=== PATIENT | male | born 1950 | race Caucasian/White ===

== ENCOUNTER → 2019-05-17 14:50 | Outpatient (CLI) | payer OTHER, SELFPAY ==
--- NOTE | 2019-05-17 14:59 | DI.RAD.S_ITS ---
PROCEDURE: XR CHEST 2V INDICATIONS: COUGH TECHNIQUE: 2 views of the chest were acquired. COMPARISON: None. FINDINGS: Surgical changes and devices: None. Lungs and pleura: Hyperinflation compatible with COPD Lungs are clear. No pleural effusions or pneumothorax. Mediastinum: Mediastinal contours are normal. Heart size is normal. Bones and chest wall: No suspicious bony abnormalities. Soft tissues appear unremarkable. Multiple displaced left superior fractures. IMPRESSION: 1. COPD. 2. No acute cardiopulmonary disease. Dictated by: Rima Fofana M.D. on 05/17/2019 at 15:24 Approved by: Rima Fofana M.D. on 05/17/2019 at 15:25
== END ==
PROVIDERS: Visit Provider Internal Medicine
DX: R05 Cough (principal); J44.9 Chronic obstructive pulmonary disease, unspecified
CPT/HCPCS: 71046

== ENCOUNTER → 2019-06-17 12:49 | Outpatient (CLI) | payer OTHER, SELFPAY ==
--- NOTE | 2019-06-22 11:01 | PM.PFT.1 ---
Pulmonary Function Test Referral & Results Date Patient Seen: 06/17/19 Requesting provider: Mich Cruz Results: The spirometry demonstrates an FVC of 5.13 L which is 106% of predicted. The FEV1 was measured at 1.92 L which is 54% of predicted. The FEV1/FVC ratio was 37 which is 50% of predicted. Following the administration of bronchodilator there was a 24% improvement in FEV1 and a 63% improvement in FEF 25-75%. Lung volumes show an SVC of 4.60 L which is 94% of predicted. The diffusing capacity was measured at 22.51 which is 64% of predicted. No hemoglobin value was provided, so no correction for potential anemia could be made, if appropriate. The maximum voluntary ventilation was reduced Interpretation: This study demonstrates moderately severe obstructive lung disease based on reduction FEV1 and FEV1/FVC ratio. There is evidence of significant benefit following bronchodilator as above Lung volumes appear to be normal so no evidence of restrictive lung disease There is a significant reduction in diffusing capacity suggesting significant disease at the capillary alveolar level as well
== END ==
PROVIDERS: PCP Internal Medicine; Visit Provider Internal Medicine
DX: R05 Cough (principal); J44.1 Chronic obstructive pulmonary disease with (acute) exacerbation; F17.200 Nicotine dependence, unspecified, uncomplicated
CPT/HCPCS: 94060; 94726; 94729

== ENCOUNTER 2019-06-19 01:20 | Emergency (ER) | payer OTHER, SELFPAY ==
--- NOTE | 2019-06-19 01:24 | ED.SOB ---
HPI - SOB/Dyspnea General Chief Complaint: Upper Respiratory Symptoms Stated Complaint: can't breath, has pneumonia Time Seen by Provider: 06/19/19 01:23 Source: patient and family Mode of arrival: Ambulatory Limitations: no limitations History of Present Illness HPI Narrative: 68M daily smoker with history of COPD presents with his and chief complaint of a few months of ongoing, if not worsening, SOB and cough. He has had no fever or chills but has felt increasingly under the weather. He denies any sputum production or hemoptysis. He denies any chest pain. He is becoming slowly and increasingly short of breath. He denies any nausea, vomiting or diarrhea. He was seen and evaluated few months ago and diagnosed with pneumonia and had been on a course of antibiotics and steroids which seemed to help but as soon as these medications were stopped his symptoms returned. Any recent travel, history of clot or cancer. He denies any lower extremity swelling or edema. Denies any recent injury, trauma, hospitalizations MD Complaint: shortness of breath and cough Onset (ago): month(s) Severity: moderate Consistency/Duration: constant Relieving factors: nothing Exacerbating factors: nothing Known history of: COPD Associated symptoms: denies other symptoms Treatment prior to arrival: none Related Data Previous Rx's Medication Instructions Recorded albuterol sulfate 1 inhalation INHALATION Q4-6H PRN 06/19/19 #1 each benzonatate [Tessalon Perles] 100 mg PO BID-TID PRN #20 cap 06/19/19 doxycycline monohydrate 100 mg PO BID 10 Days #20 cap 06/19/19 prednisone See Rx Instructions .ROUTE 06/19/19 .COMPLEX #30 tab promethazine-codeine 5 ml PO Q4-6H PRN #473 ml 06/19/19 Review of Systems Constitutional Constitutional: Denies chills, Denies fatigue, Denies fever(s), Denies frequent falls, Denies lethargy and Denies weakness Eyes Eyes: Denies change in vision, Denies eye discharge, Denies irritation and Denies loss of vision ENT Ears, Nose, Mouth, and Throat: Denies change in voice, Denies dizziness, Denies neck pain, Denies sore throat and Denies throat swelling Cardiovascular Cardiovascular: Denies chest pain, Denies irregular heart rhythm, Denies lightheadedness, Denies palpitations, Reports dyspnea, Denies dyspnea on exertion and Denies orthopnea Respiratory Respiratory: Reports cough, Reports dyspnea, Denies dyspnea on exertion and Denies wheezing Gastrointestinal Gastrointestinal: Denies abdominal pain, Denies change in bowel habits, Denies diarrhea, Denies nausea and Denies vomiting Genitourinary Genitourinary: Denies hematuria, Denies flank pain, Denies urinary incontinence and Denies urinary urgency Musculoskeletal Musculoskeletal: Denies back pain, Denies muscle weakness, Denies neck pain, Denies numbness and Denies tingling Integumentary/Breasts Skin/Breast: Denies pruritus, Denies erythema, Denies rash and Denies wounds Neurologic Neurologic: Denies behavioral changes, Denies confusion, Denies dizziness, Denies frequent falls, Denies loss of vision, Denies numbness, Denies tingling and Denies weakness Psychiatric Psychiatric: Denies anxiety, Denies behavioral changes, Denies confusion, Denies depression, Denies homicidal ideation and Denies suicidal ideation Endocrine Endocrine: Denies fatigue, Denies flushing and Denies palpitations Hematologic/Lymphatic Hematologic/Lymphatic: Denies easy bruising Allergic/Immunologic Allergic/Immunologic: Denies urticaria, Denies throat swelling and Denies wheezing Patient History Social History Smoking Status: Current every day smoker Smoking Status: Current every day smoker tobacco type: cigarettes alcohol intake frequency: 0-2 drinks per day Exam Narrative Exam Narrative: GENERAL: [] 68 year old patient appears stated age. Well-nourished, well-developed patient, in mild distress. HEAD: Atraumatic. Normocephalic. EYES: Pupils equal round and reactive. Extraocular motions intact. No scleral icterus. No injection or drainage. ENT: Nose without bleeding, purulent drainage. Throat without erythema, tonsillar hypertrophy or exudate. Airway patent. NECK: Trachea midline. Non tender CARDIOVASCULAR: Regular rate and rhythm without murmurs, gallops, or rubs. RESPIRATORY: Decreased breath sounds bilaterally with prolonged expiratory phase and end-expiratory wheeze. Deep breath seems to elicit cough. No crackles or rhonchi GASTROINTESTINAL: Abdomen soft, non-tender, nondistended. EXTREMITIES: No edema or joint tenderness. BACK: Nontender without deformity or crepitance. No flank tenderness. NEURO: AOx3. SKIN: No rash or erythema of visible areas Initial Vital Signs Initial Vital Signs: Vital Signs Pulse Rate 68 06/19/19 01:33 Respiratory Rate 20 06/19/19 01:33 Pulse Oximetry 96 06/19/19 01:33 Course Orders Ordered: ED Orders 06/19/19 01:45 B Type Natriuretic Peptide Stat Basic Metabolic Panel Stat Complete Blood Count AUTO DIFF Stat D Dimer Stat Lactate (Lactic Acid) Stat Magnesium Stat Procalcitonin Stat Troponin & CK Cardiac Panel Stat 06/19/19 01:55 Consult to Respiratory Therapy Evaluate & Treat 06/19/19 01:56 XR chest 2V Stat 06/19/19 02:15 Blood Culture Stat 06/19/19 02:43 CT angio chest PE protocol Stat Sodium Chloride (Normal Saline 0.9%) 1,000 mls @ 150 mls/hr IV CONT DEEDEE Last Admin: 06/19/19 02:09 Dose: 150 mls/hr Documented by: MINERVA Discontinued Medications Albuterol/Ipratropium (Duoneb) 3 ml INH NOW ONE Stop: 06/19/19 01:34 Last Admin: 06/19/19 01:35 Dose: 3 ml Documented by: RIDDHI Albuterol/Ipratropium (Duoneb) 3 ml INH NOW ONE Stop: 06/19/19 01:56 Last Admin: 06/19/19 02:15 Dose: 3 ml Documented by: RIDDHI Methylprednisolone (Solu-Medrol 125 Mg Vial) 125 mg IV NOW ONE Stop: 06/19/19 01:56 Last Admin: 06/19/19 02:09 Dose: 125 mg Documented by: MINERVA Vital Signs Vital signs: Vital Signs - 8 hr 06/19/19 01:33 06/19/19 01:55 06/19/19 01:59 Temperature 98.1 F Pulse Rate 68 68 68 Respiratory Rate 20 20 Blood Pressure 156/90 H Blood Pressure [Left Arm] 143/83 H Pulse Oximetry 96 98 98 MDM - SOB/Dyspnea Lab Data Result diagrams: 06/19/19 01:45 06/19/19 01:45 Labs: Lab Results 06/19/19 06/19/19 06/19/19 Range/Units 01:45 01:45 01:45 WBC 5.7 (4.5-11.0) X10^3/uL RBC 4.30 L (4.5-5.9) X10^6/uL Hgb 15.0 (13.5-17.5) g/dL Hct 42.5 (41-53) % MCV 99.0 (80-100) fL MCH 34.9 H (26-34) PG MCHC 35.3 (30-36) % RDW 13.3 (11.6-14.8) % Plt Count 295 (150-400) X10^3/uL Neut % (Auto) 61.5 (50-75) % Lymph % (Auto) 22.3 L (25-40) % [place] % (Auto) 9.3 (3-14) % Eos % (Auto) 5.8 H (2-4) % Baso % (Auto) 1.1 (0-2) % Neut # (Auto) 3500 (5745-6673) /uL Lymph # (Auto) 1300 (9449-3391) /uL [place] # (Auto) 500 (0-900) /uL Eos # (Auto) 300 (0-450) /uL Baso # (Auto) 100 (0-100) /uL D-Dimer 529 H (<230) ng/mL Sodium 131 L (137-145) mmol/L Potassium 4.6 (3.4-5.1) mmol/L Chloride 99 (98-107) mmol/L Carbon Dioxide 25 (22-32) mmol/L BUN 10 (9-20) mg/dL Creatinine 0.60 L (0.66-1.25) mg/dL Estimated GFR > 60.0 (>60) mL/min BUN/Creatinine Ratio 16.7 (6-22) Glucose 105 (80-110) mg/dL Lactate (0.7-2.1) mmol/L Calcium 8.9 (8.4-10.2) mg/dL Magnesium 2.2 (1.6-2.3) mg/dL Total Creatine Kinase 68 (55-170) U/L CK-MB (CK-2) TNP CK-MB (CK-2) Rel Index TNP Troponin I < 0.012 (0.01-0.034) ng/mL B-Natriuretic Peptide < 100 (<100) Procalcitonin (<0.5) ng/mL 06/19/19 06/19/19 Range/Units 01:45 01:45 WBC (4.5-11.0) X10^3/uL RBC (4.5-5.9) X10^6/uL Hgb (13.5-17.5) g/dL Hct (41-53) % MCV (80-100) fL MCH (26-34) PG MCHC (30-36) % RDW (11.6-14.8) % Plt Count (150-400) X10^3/uL Neut % (Auto) (50-75) % Lymph % (Auto) (25-40) % [place] % (Auto) (3-14) % Eos % (Auto) (2-4) % Baso % (Auto) (0-2) % Neut # (Auto) (6030-4600) /uL Lymph # (Auto) (4234-2413) /uL [place] # (Auto) (0-900) /uL Eos # (Auto) (0-450) /uL Baso # (Auto) (0-100) /uL D-Dimer (<230) ng/mL Sodium (137-145) mmol/L Potassium (3.4-5.1) mmol/L Chloride (98-107) mmol/L Carbon Dioxide (22-32) mmol/L BUN (9-20) mg/dL Creatinine (0.66-1.25) mg/dL Estimated GFR (>60) mL/min BUN/Creatinine Ratio (6-22) Glucose (80-110) mg/dL Lactate 0.9 (0.7-2.1) mmol/L Calcium (8.4-10.2) mg/dL Magnesium (1.6-2.3) mg/dL Total Creatine Kinase (55-170) U/L CK-MB (CK-2) CK-MB (CK-2) Rel Index Troponin I (0.01-0.034) ng/mL B-Natriuretic Peptide (<100) Procalcitonin < 0.05 (<0.5) ng/mL Urine Dip Bedside Urine Glucose Negative Bedside Urine Bilirubin - Negative Bedside Urine Ketone - Negative Urine Specific [place] 1.015 Bedside Urine Occult Blood - Negative Bedside Urine pH 6.5 Bedside Urine Protein - Negative Bedside Urine Urobilinogen - Negative Bedside Urine Nitrite - Negative Bedside Urine Leukocytes - Negative Esterase Imaging Data Chest x-ray: Attestation: I personally reviewed and interpreted this imaging study as follows: My Impression: COPD, NAP CT scan - chest: Radiologist's Impression: No evidence for gross pulmonary embolism, no pneumothorax, pleural effusion MDM Narrative Medical decision making narrative: Multiple etiologies for patient's symptoms considered including: [Pneumonia versus pulmonary embolism versus exacerbation of COPD versus lung cancer versus other] Patient's symptoms improved or duration of stay with above-stated therapies. Findings and discharge diagnosis discussed with patient/family followed by verbalization of understanding Return precautions discussed with patient/family whom verbalize understanding. Discharge Plan Departure Patient Disposition: Home Clinical Impression: Acute exacerbation of chronic obstructive pulmonary disease, Atypical pneumonia Instructions: Chronic Obstructive Pulmonary Disease, DI for Atypical Pneumonia Activity Restrictions/Additional Instructions: *You have been diagnosed with [exacerbation of COPD and atypical pneumonia] *What to do: *Take medications as directed: Prescriptions sent to [facility] at your request *Follow up with your primary care provider in 2-3 days, call for an appointment. Let them know you were seen in the Emergency Department and that we ask that you be seen in follow up *Return to ER if you should have any new, worsening or concerning symptoms Prescriptions: New doxycycline monohydrate 100 mg capsule 100 mg PO BID 10 Days Qty: 20 RF: 0 prednisone 10 mg tablet See Rx Instructions .ROUTE .COMPLEX Qty: 30 RF: 0 benzonatate [Tessalon Perles] 100 mg capsule 100 mg PO BID-TID PRN (Reason: cough) Qty: 20 RF: 0 promethazine-codeine 6.25-10 mg/5 mL syrup 5 ml PO Q4-6H PRN (Reason: cough) Qty: 473 RF: 0 albuterol sulfate 90 mcg/actuation aerosol powdr breath activated 1 inhalation INHALATION Q4-6H PRN (Reason: shortness of breath or wheezing) Qty: 1 RF: 0 Referrals: Mich Cruz MD [Primary Care Provider] -
[2019-06-19 01:33] VITALS: PULSE 68; RESP 20; O2SAT 96
[2019-06-19] MEDS: ALBUTEROL/IPRATROPIUM 3 ML AMPUL INH ×2 (01:35→02:15)
[2019-06-19 01:55] VITALS: BP 156/90; PULSE 68; RESP 20; TEMP 36.7; O2SAT 98
--- NOTE | 2019-06-19 01:56 | DI.RAD.S_ITS ---
PROCEDURE: XR CHEST 2V INDICATIONS: persistent cough /short of breath TECHNIQUE: 2 views of the chest were acquired. COMPARISON: [facility], CT, CT ANGIO CHEST PE PROTOCOL, 06/19/2019, 2:52. [facility], CR, XR CHEST 2V, 05/17/2019, 15:01. FINDINGS: Surgical changes and devices: None. Lungs and pleura: Lungs are mild interstitial prominence is seen. hyperexpanded. No pleural effusions or pneumothorax. Mediastinum: Mediastinal contours are normal. Heart size is normal. Atherosclerotic calcification of the aortic arch is noted. Bones and chest wall: No suspicious bony abnormalities. Remote probable healed left-sided rib fractures are seen, which are better demonstrated on the CT examination. Soft tissues appear unremarkable. IMPRESSION: Mild interstitial prominence is seen. The interstitial prominence is nonspecific, yet may be related to pulmonary edema. Poorly healed left-sided rib fractures. Dictated by: Som Romeo M.D. on 06/19/2019 at 8:02 Approved by: Som Romeo M.D. on 06/19/2019 at 8:03
[2019-06-19 01:59] VITALS: BP 143/83; PULSE 68; O2SAT 98
[2019-06-19 02:08] LABS: D Dimer 529 ng/mL (<230)
[2019-06-19] MEDS: SODIUM CHLORIDE 0.9% 1,000 ML 150 ML IV (02:09)
[2019-06-19] MEDS: methylPREDNISolone 125 MG/2 ML VIAL IV (02:09)
[2019-06-19 02:10] LABS: Add Manual Diff / Slide Review NO; Basophils Absolute Auto 100 /uL (0-100); Basophils Percent Auto 1.1 % (0-2); Eosinophils Absolute Auto 300 /uL (0-450); Eosinophils Percent Auto 5.8 % (2-4); Hematocrit 42.5 % (41-53); Lymphocytes Absolute Auto 1300 /uL (1100-4500); Lymphocytes Percent Auto 22.3 % (25-40); Mean Corpuscular HGB Conc 35.3 % (30-36); Mean Corpuscular Hemoglobin 34.9 PG (26-34); Monocytes Absolute Auto 500 /uL (0-900); Monocytes Percent Auto 9.3 % (3-14); Neutrophils Absolute Auto 3500 /uL (1500-7000); Neutrophils Percent Auto 61.5 % (50-75); Platelet Count 295 X10^3/uL (150-400); Red Cell Distribution Width 13.3 % (11.6-14.8); White Blood Cell Count 5.7 X10^3/uL (4.5-11.0)
[2019-06-19 02:13] LABS: BUN Creatinine Ratio 16.7 (6-22); Blood Urea Nitrogen 10 mg/dL (9-20); Calcium 8.9 mg/dL (8.4-10.2); Carbon Dioxide 25 mmol/L (22-32); Chloride 99 mmol/L (98-107); Creatine Kinase 68 U/L (55-170); Estimated Glomerular Filt Rate > 60.0 mL/min (>60); Glucose 105 mg/dL (80-110); HEMOLYSIS 21 (0-50); Lactate (Lactic Acid) 0.9 mmol/L (0.7-2.1); Magnesium 2.2 mg/dL (1.6-2.3); Potassium 4.6 mmol/L (3.4-5.1); Sodium 131 mmol/L (137-145)
[2019-06-19 02:25] LABS: Troponin I < 0.012 ng/mL (0.01-0.034)
[2019-06-19 02:27] LABS: Procalcitonin < 0.05 ng/mL (<0.5)
[2019-06-19 02:29] LABS: B Type Natriuretic Peptide < 100 (<100)
--- NOTE | 2019-06-19 02:43 | DI.CT.S_ITS ---
PROCEDURE: CT ANGIO CHEST PE PROTOCOL INDICATIONS: cough, short of breath, smoker TECHNIQUE: After the administration of intravenous contrast, 2 mm thick sections acquired from the pulmonary apices to the posterior costophrenic angles. 3-dimensional maximum intensity projection (MIP) coronal and sagittal reformats were then acquired through the thorax. For radiation dose reduction, the following was used: automated exposure control, adjustment of mA and/or kV according to patient size. COMPARISON: [facility], CR, XR CHEST 2V, 05/17/2019, 15:01. [facility], CR, XR CHEST 2V, 06/19/2019, 1:57. FINDINGS: Image quality: Excellent. Pulmonary arteries: Pulmonary arteries are normal in size, and demonstrate no intraluminal filling defects to suggest central pulmonary embolism. Lungs and pleura: Emphysematous changes are seen. Relatively large subpleural blebs can be seen on both lung apices. Mild dependently layering groundglass opacities can be seen. No pleural effusions or pneumothorax. Central and peripheral airways are patent. Mediastinum: Heart size is normal, without pericardial effusion. Coronary artery calcifications are seen. No mediastinal or hilar adenopathy. Thoracic aorta is normal in caliber and enhancement. Esophagus is normal in caliber, without hiatal hernia. Bones and chest wall: No suspicious bony lesions. Numerous remote appearing, poorly healed left-sided rib fractures are seen. Age-appropriate bony degenerative changes are seen. Thyroid gland demonstrates no significant CT abnormality. No axillary or supraclavicular adenopathy. Abdomen: Visualized upper abdominal solid organs appear normal in the early arterial phase of enhancement. IMPRESSION: Negative for pulmonary embolism. No focal infiltrates are seen. Dependently layering groundglass opacity can be seen. Mild pulmonary edema is suspected. Emphysematous changes with prominent subpleural bleb formation at the lung apices Incidental note is made of: Coronary artery calcification Poorly healed, remote appearing left-sided rib fractures Note: No significant discrepancy from the preliminary report. Dictated by: Som Romeo M.D. on 06/19/2019 at 7:58 Approved by: Som Romeo M.D. on 06/19/2019 at 8:02
[2019-06-19 05:00] VITALS: BP 130/74; PULSE 77; O2SAT 97
== END 2019-06-19 05:25 | disposition home or self-care (01) ==
PROVIDERS: Emergency Provider Emergency Medicine; PCP Internal Medicine
DX: J44.1 Chronic obstructive pulmonary disease with (acute) exacerbation (principal); J18.9 Pneumonia, unspecified organism; Z72.0 Tobacco use
CPT/HCPCS: 36415; 71046; 71275; 80048; 81003; 82550; 83605; 83735; 83880; 84145; 84484; 85025; 85379; 87040; 94640; 96361; 96374; 99284; 99285; J2930; Q9967

== ENCOUNTER → 2019-08-01 12:47 | Outpatient (CLI) | payer OTHER, SELFPAY ==
--- NOTE | 2019-08-01 | DI.RAD.S_ITS ---
PROCEDURE: XR CHEST 2V INDICATIONS: COUGH TECHNIQUE: 2 views of the chest were acquired. COMPARISON: [facility], CR, XR CHEST 2V, 06/19/2019, 1:57. FINDINGS: Surgical changes and devices: None. Lungs and pleura: Lungs are clear. No pleural effusions or pneumothorax. Mediastinum: Mediastinal contours are normal. Heart size is normal. Bones and chest wall: No suspicious bony abnormalities. Soft tissues appear unremarkable. IMPRESSION: No acute cardiopulmonary pathology. Dictated by: Arthur Herbert M.D. on 08/01/2019 at 14:22 Approved by: Arthur Herbert M.D. on 08/01/2019 at 14:25
== END ==
PROVIDERS: PCP Internal Medicine; Referring Provider Internal Medicine; Visit Provider Internal Medicine
DX: R05 Cough (principal); R06.02 Shortness of breath
CPT/HCPCS: 71046